=== PATIENT | male | born 1955 | race Caucasian/White ===

== ENCOUNTER → 2018-09-15 | Outpatient (CLI) | payer OTHER ==
[2014-11-17 08:05] VITALS: BP 140/82
[~2018-09-15] MED LIST: CYCL-331 PO
--- NOTE | 2018-09-15 17:01 | RAD ---
Chest, 2 views, 09/15/2018: HISTORY: Cough The heart size and pulmonary vascularity are normal. No pulmonary infiltrate is seen. There is no evidence of pleural fluid. IMPRESSION: No acute cardiopulmonary abnormality is detected. Electronically signed by: Nick Wang MD (09/15/2018 4:58 PM) [facility]
== END | disposition home or self-care (01) ==
LOC: PMG 12:19
PROVIDERS: ATTEND Family Medicine
DX: R06.09 Other forms of dyspnea (principal); R05 Cough
CPT/HCPCS: 71046

== ENCOUNTER 2019-04-22 10:47 | Emergency (ER) | payer OTHER ==
[~2019-04-22] VITALS: Ht 182.9 cm; Wt 98.3 kg
[2019-04-22 10:56] VITALS: BP 121/78
--- NOTE | 2019-04-22 11:23 | PHYS DOC ---
Past History Past Medical History: GERD, Hypertension Past Surgical History: No Surgical History Smoking: Non-smoker Alcohol Use: Rarely Drug Use: None Adult General Chief Complaint Chief Complaint: FEVER HPI HPI Patient is a 63-year-old male who presents to the emergency department for evaluation of flulike symptoms. He states yesterday afternoon, he developed some mild diffuse myalgias, low-grade fever, mild nasal congestion and a mild cough. He has not had any focal pain, headache, chest pain, or significant shortness of breath. He has not had any urinary symptoms, abdominal pain, nausea, vomiting, or diarrhea. [facility] to [facility], and had an influenza swab which was reportedly negative, and urinalysis, which showed positive ketones, although the patient states he has not been eating or drinking much, but was otherwise unremarkable. However, his oxygen saturation was below 95%, and the patient states he was sent to the emergency department for evaluation.Upon arrival, his oxygen saturation is in the mid to upper 90s. There are no alleviating or exacerbating factors to his symptoms. He has not taken any medications for his symptoms. Review of Systems Review of Systems Constitutional: Denies lethargy or chills. Reports fevers and myalgias. [] Eyes: Denies change in visual acuity, redness, or eye pain [] HENT: Denies otalgia or sore throat . Reports nasal congestion[] Respiratory: Denies productive cough or shortness of breath [] Cardiovascular: The patient denies any shortness of breath, chest pain, palpitations, or orthopnea [] GI: Denies abdominal pain, nausea, vomiting, bloody stools or diarrhea [] : Denies dysuria or hematuria [] Musculoskeletal: Denies back pain or joint pain [] Integument: Denies rash or skin lesions [] Neurologic: Denies headache, focal weakness or sensory changes [] Endocrine: Denies polyuria or polydipsia [] All other systems were reviewed and found to be within normal limits, except as documented in this note. Allergies Allergies Allergies Coded Allergies Type Severity Reaction Last Updated Verified No Known Drug Allergies 11/17/14 No Physical Exam Physical Exam PHYSICAL EXAM: CONSTITUTIONAL: Well developed, well nourished HEAD: normocephalic, atraumatic EENT: PERRL, EOMI. Conjunctivae normal color, sclerae non-icteric; moist mucous membranes. The oropharynx is unremarkable. Tympanic members are injected bilaterally but otherwise unremarkable. NECK: Supple, non-tender; no meningismus. LUNGS: Lungs CTA, breathing even and unlabored. Normal air movement. HEART: Regular rate and rhythm, no murmur CHEST: No deformity; non-tender ABDOMEN: The abdomen is soft, and non-tender, no masses or bruits. EXTREM: Normal ROM; no deformity, no calf tenderness. Normal pulses palpable in all extremities. There is no pedal edema. SKIN: No rash; no diaphoresis NEURO: Alert; normal speech and cognition; CN's grossly intact; strength grossly intact without focal deficit. BACK: No CVA TTP. Current Patient Data Vital Signs Vital Signs Date Time Temp Pulse Resp B/P (MAP) Pulse Ox O2 Delivery O2 Flow Rate FiO2 04/22/19 10:56 98.8 85 16 121/78 (92) 96 Room Air Lab Results Laboratory Tests Test 04/22/19 11:40 White Blood Count 7.2 x10^3/uL Red Blood Count 5.12 x10^6/uL Hemoglobin 15.4 g/dL Hematocrit 45.9 % Mean Corpuscular Volume 90 fL Mean Corpuscular Hemoglobin 30 pg Mean Corpuscular Hemoglobin Concent 34 g/dL Red Cell Distribution Width 13.9 % Platelet Count 176 x10^3/uL Neutrophils (%) (Auto) 87 % Lymphocytes (%) (Auto) 4 % Monocytes (%) (Auto) 8 % Eosinophils (%) (Auto) 1 % Basophils (%) (Auto) 1 % Neutrophils # (Auto) 6.2 x10^3uL Lymphocytes # (Auto) 0.3 x10^3/uL Monocytes # (Auto) 0.6 x10^3/uL Eosinophils # (Auto) 0.1 x10^3/uL Basophils # (Auto) 0.0 x10^3/uL Sodium Level 142 mmol/L Potassium Level 4.1 mmol/L Chloride Level 105 mmol/L Carbon Dioxide Level 29 mmol/L Anion Gap 8 Blood Urea Nitrogen 14 mg/dL Creatinine 0.9 mg/dL Estimated GFR (Cockcroft-Gault) 85.0 BUN/Creatinine Ratio 16 Glucose Level 104 mg/dL Lactic Acid Level 1.2 mmol/L Calcium Level 8.7 mg/dL Total Bilirubin 0.4 mg/dL Aspartate Amino Transf (AST/SGOT) 23 U/L Alanine Aminotransferase (ALT/SGPT) 29 U/L Alkaline Phosphatase 73 U/L Creatine Kinase 114 U/L Total Protein 6.6 g/dL Albumin 3.3 g/dL Albumin/Globulin Ratio 1.0 Influenza Type A (Rapid) Negative Influenza Type B (Rapid) Negative Current Medications Medications (Trade) Dose Ordered Sig/Sabine Route PRN Reason Start Time Stop Time Status Last Admin Dose Admin Sodium Chloride 1,000 ml @ 1,000 mls/hr 1X ONCE IV 04/22/19 11:30 04/22/19 12:29 DC 04/22/19 11:30 Ketorolac Tromethamine (Toradol 30mg Vial) 30 mg 1X ONCE IVP 04/22/19 11:30 04/22/19 11:31 DC 04/22/19 11:30 Acetaminophen (Tylenol) 1,000 mg 1X ONCE PO 04/22/19 11:30 04/22/19 11:31 DC 04/22/19 11:30 EKG EKG [] Radiology/Procedures Radiology/Procedures PROCEDURE: CHEST PA & LATERAL EXAM: Chest, 2 views HISTORY: Cough and fever. COMPARISON: 09/15/2018 FINDINGS: 2 views of the chest are obtained. There is suspected lingular and bilateral infrahilar atelectasis or interstitial infiltrate. There is no consolidation, pleural effusion or pneumothorax. The heart is normal in size. IMPRESSION: Lingular and bilateral infrahilar atelectasis or interstitial infiltrate.[] Course & Med Decision Making Course & Med Decision Making Pertinent Labs and Imaging studies reviewed. (See chart for details) []12:45 PM: The patient's condition remains stable. He was given a prescription for Tamiflu by the [facility]. Although I am not suspicious that he has pneumonia, I cannot exclude this with certainty given the x-ray findings and given the patient's left shift, will prescribe a course of antibiotics. The importance of close outpatient monitoring and follow-up and return precautions were discussed. The patient's oxygen saturation is in the mid 90s at rest. Dragon Disclaimer Dragon Disclaimer This electronic medical record was generated, in whole or in part, using a voice recognition dictation system. Departure Departure: Impression: Primary Impression: Fever of unknown origin (FUO) Disposition: HOME, SELF-CARE Condition: STABLE Referrals: JOSE PORTILLO MD (PCP) Patient Instructions: Fever of Unknown Origin, Viral Syndrome Additional Instructions: Tylenol/Motrin as needed for pain or fever. Return to medical care for any new or worsening symptoms, development of shortness of breath, increasing pain, high fevers, nausea, vomiting, or any other new, or concerning symptoms. Scripts Azithromycin (ZITHROMAX) 250 Mg Tablet 1 PKG PO UD for -, #6 TAB Prov: LAVONNE HER MD 04/22/19 LAVONNE HER MD Apr 22, 2019 11:22
[2019-04-22] MEDS ORDERED: ACETAMINOPHEN 500 MG TABLET PO ONE (11:30)
[2019-04-22] MEDS ORDERED: KETOROLAC 30 MG/ML VIAL. IVP ONE (11:30)
[2019-04-22] MEDS ORDERED: IV NORMAL SALINE 1,000ML 1,000 ML IV ONE (11:30)
--- NOTE | 2019-04-22 11:35 | RAD ---
EXAM: Chest, 2 views HISTORY: Cough and fever. COMPARISON: 09/15/2018 FINDINGS: 2 views of the chest are obtained. There is suspected lingular and bilateral infrahilar atelectasis or interstitial infiltrate. There is no consolidation, pleural effusion or pneumothorax. The heart is normal in size. IMPRESSION: Lingular and bilateral infrahilar atelectasis or interstitial infiltrate. Electronically signed by: Bobbi Draper MD (04/22/2019 11:32 AM) [facility] [id number]
[2019-04-22 12:06] LABS: BASO % 1 % (0-3); EOS # 0.1 x10^3/uL (0.0-0.7); EOS % 1 % (0-3); HEMATOCRIT 45.9 % (39.0-53.0); HEMOGLOBIN 15.4 g/dL (13.0-17.5); LYMPH # 0.3 x10^3/uL (1.0-4.8); LYMPH % 4 % (24-48); MEAN CORPUSCULAR HEMOGLOBIN 30 pg (25-35); MEAN CORPUSCULAR HGB CONC 34 g/dL (31-37); MEAN CORPUSCULAR VOLUME 90 fL (79-100); MONO # 0.6 x10^3/uL (0.0-1.1); MONO % 8 % (0-9); NEUT # 6.2 x10^3uL (1.8-7.7); NEUT % 87 % (31-73); PLATELET COUNT 176 x10^3/uL (140-400); RED BLOOD COUNT 5.12 x10^6/uL (4.30-5.70); RED CELL DISTRIBUTION WIDTH 13.9 % (11.5-14.5); WHITE BLOOD COUNT 7.2 x10^3/uL (4.0-11.0)
[2019-04-22 12:11] LABS: CALCIUM 8.7 mg/dL (8.5-10.1); CREATININE 0.9 mg/dL (0.7-1.3); POTASSIUM 4.1 mmol/L (3.5-5.1)
[2019-04-22 12:25] LABS: INFLUENZA A PATIENT NEGATIVE (NEGATIVE); INFLUENZA B PATIENT NEGATIVE (NEGATIVE)
[2019-04-22 12:26] LABS: ALBUMIN 3.3 g/dL (3.4-5.0); TOTAL BILIRUBIN 0.4 mg/dL (0.2-1.0); TOTAL PROTEIN 6.6 g/dL (6.4-8.2)
[2019-04-22] MEDS ORDERED: AZIT250T PO (12:45)
== END 2019-04-22 12:54 | disposition home or self-care (01) ==
LOC: ER 10:47
DX: R50.9 Fever, unspecified (principal); R05 Cough; M79.10 Myalgia, unspecified site; K21.9 Gastro-esophageal reflux disease without esophagitis; I10 Essential (primary) hypertension
CPT/HCPCS: 36415; 71046; 80053; 82550; 83605; 85025; 87040; 87804; 96374; 99285; J1885; J7030

== ENCOUNTER → 2021-02-09 | Outpatient (CLI) | payer MEDICARE, OTHER ==
[~2021-02-09] MED LIST changes: +AZIT250T PO; -CYCL-331 PO; +CYCL10TA19 PO
--- NOTE | 2021-02-09 08:23 | RAD ---
Chest, PA and Lateral: Technique: PA and lateral views of the chest were obtained. History: Upper respiratory infection. Comparison: None. Findings: The heart and pulmonary vasculature appear within normal limits. The lungs are clear. The pleural ma rgins are clear. Impression: No acute chest process is seen. Electronically signed by: Rod Banuelos MD (02/09/2021 8:21 AM) [id number]
== END ==
LOC: RAD 07:48
PROVIDERS: ATTEND Nurse Practitioner Family
DX: J06.9 Acute upper respiratory infection, unspecified (principal)
CPT/HCPCS: 71046